=== PATIENT | male | born 1940 | race African-American/Black ===

== ENCOUNTER 2017-03-25 09:55 | Day surgery (SDC) | payer OTHER, MEDICARE ==
[2017-03-21 11:42] VITALS: BMI 24.3
[2017-03-25] MEDS ORDERED: PROPOFOL 20 ML ONE ×2 (10:16)
[2017-03-25 10:32] VITALS: TEMP 98
[2017-03-25 13:31] VITALS: BP 121/69; PULSE 62
== END 2017-03-25 12:20 | disposition home or self-care (01) ==
LOC: FASU-ENDO 09:55
PROVIDERS: ATTEND Internal Medicine Gastroenterology
PROC: 0DJD8ZZ Inspection of Lower Intestinal Tract, Via Natural or Artificial Opening Endoscopic (ICD-10-PCS; principal; 2017-03-25 11:30)
DX: Z86.010 Personal history of colon polyps (principal); Z83.71 Family history of colonic polyps; K64.8 Other hemorrhoids